=== PATIENT | female | born 1975 | race Caucasian/White ===

== ENCOUNTER 2019-10-20 13:33 | Outpatient (CLI) | payer OTHER | END 2019-10-20 13:34 | disposition home or self-care (01) | LOC: COV 13:33 | PROVIDERS: ATTEND Surgery | DX: Z01.812 Encounter for preprocedural laboratory examination (principal); K40.90 Unilateral inguinal hernia, without obstruction or gangrene, not specified as recurrent | CPT/HCPCS: 81599 ==

== ENCOUNTER 2019-10-24 10:09 | Day surgery (SDC) | payer OTHER ==
[~2019-10-24 10:09] MED LIST: BUPIVACAINE 0.5% PF 30 ML VIAL INFIL ONE; CEFAZOLIN SODIUM IN 0.9 % NACL 2 GM/100 ML BAG IV ONE; LACTATED RINGERS 1,000 ML IV ONE; LIDOCAINE 1%-EPI 1:100000 20 ML MDV SUBQ ONE
[2019-10-24] MEDS ORDERED: LACTATED RINGERS 1,000 ML IV ONE (10:25)
--- NOTE | 2019-10-24 10:48 | ANESTHESIA ---
Pre-Anesthesia VS, & Labs - Diagnosis left inguinal hernia - Procedure left inguinal hernia repair Vital Signs: Temp Pulse Resp BP Pulse Ox 36.3 C L 68 18 159/95 H 100 10/24/19 09:59 10/24/19 09:59 10/24/19 09:59 10/24/19 09:59 10/24/19 09:59 Height 5 ft 5 in Weight (kg) 114 kg - NPO >8 hours - Is Patient ?: No Home Medications and Allergies Home Medications: Ambulatory Orders Norgestrel-Ethinyl Estradiol [[id number] Tablet] 1 tab PO DAILY 10/24/19 Norgestrel-Ethinyl Estradiol [[id number] Tablet] 1 tab PO DAILY 10/24/19 Allergies/Adverse Reactions: Allergies Allergy/AdvReac Type Severity Reaction Status Date / Time No Known Drug Allergies Allergy Verified 10/24/19 10:25 Anes History & Medical History - Anesthetic History Anesthesia Complications: reports: Post-Operative Nausea/Vomiting Family history of Anesthesia Complications: Denies Family history of Malignant Hyperthermia: Denies - Medical History Cardiovascular: reports: None Pulmonary: reports: None Gastrointestinal: reports: GERD (but not this morning) Urinary: reports: None Neuro: reports: None Musculoskeletal: reports: None Endocrine/Autoimmune: reports: None Blood Disorders: reports: None Skin: reports: None Smoking Status: Never smoker Psychosocial: reports: Depression, Anxiety (reports having had "many reproductive surgeries") - Surgical History Gynecologic: Other Exam General: Alert, Oriented x3, Cooperative, No acute distress Dental: WNL Mouth Openin Fingerbreadth Neck Mobility: Normal Mallampati classification: II Thyromental Distance: 4-6 cm Respiratory: Lungs clear, Normal breath sounds, No respiratory distress, No accessory muscle use Cardiovascular: Regular rate, Normal S1, Normal S2, No murmurs Abdomen: Normal bowel sounds, Soft, No tenderness, No hepatospenomegaly, No masses Extremities: No clubbing, No cyanosis, No edema, Normal pulses, No tenderness/swelling Neurological: Normal gait, Normal speech, Strength at 5/5 X4 ext, Normal tone, Sensation intact, Cranial nerves 3-12 NL, Reflexes 2+ Mental/Cognitive Status: Alert/Oriented X3, Normal for patient Cognitive Status: Within normal limits Plan Anesthesia Type: General Consent for Procedure(s) Verified and Reviewed: Yes Code Status: Attempt Resuscitation ASA classification: 2-Mild systemic disease Is this case an emergency?: No
[2019-10-24] MEDS ORDERED: FAMOTIDINE 20 MG/2 ML VIAL ONE (11:19)
[2019-10-24] MEDS ORDERED: ceFAZolin 1 GM VIAL IR ONE (11:25)
[2019-10-24] MEDS ORDERED: ceFAZolin 1 GM VIAL ONE (11:28)
--- NOTE | 2019-10-24 11:47 | OPERATIVE REPORT ---
Operative Report - General Procedure Date: 10/24/19 Planned Procedure: Right inguinal hernia repair Pre-Op Diagnosis: Painful right inguinal hernia Procedure Performed: Right inguinal hernia repair Post Op Diagnosis: Indirect right inguinal hernia - Procedure Note Primary Surgeon: Deborah Anesthesia Provider: CHRISTINA Mo Anesthesia Technique: General LMA, Local Estimated Blood Loss (mL): 10 Findings: Indirect right inguinal hernia Complications: none apparent - Other Other Information/Narrative: After obtaining informed consent, the patient is brought to the operating room and placed in the supine position on the operating table. Following successful induction of general endotracheal anesthesia, appropriate padding of all bony prominences, and placement of appropriate monitors, the abdomen was prepped and draped in the standard surgical fashion. A timeout was held per scope protocol. All elements of the surgical safety checklist were followed before, during, and after the procedure. We began the procedure by infiltrating a mixture of local anesthetics medial to the anterior superior iliac spine on the right. This was done to create an ileal inguinal nerve block. We then selected a site for an incision in the right lower quadrant just superior and lateral to the right pubic tubercle. This area was anesthetized with additional local anesthetic and an incision was created here.The incision was carried down through the skin and subcutaneous tissue to reveal the fascia of the external oblique aponeurosis. Retractor was placed and the aponeurosis was opened in direction of its fibers. The ilioinguinal nerve was immediately identified. The round ligament was identified with the hernia sac. It was divided and the sac placed back into the abdominal cavity. The sac was in the indirect position. We elected to repair the hernia with a large Prolene hernia system mesh implant. This was dipped in Ancef containing solution and then deployed into the defect. The posterior leaf let was straightened and flattened in the preperitoneal space. The inferior aspect of the anterior leaflet was then sewn to Herbert's ligament medially. Laterally it was tucked under the external beak aponeurosis. The wound was checked for hemostasis and irrigated with warm saline solution. It was aspirated free of all fluid and particulate matter. The extra oblique aponeurosis was then closed with a running locking Vicryl suture Nigel's fascia was closed with Vicryl suture and Monocryl stitches were placed in the skin. All sponge, needle, and instrument counts were correct at the conclusion of the case. The patient was allowed awaken from anesthesia without difficulty and taken to the postanesthesia care unit in good condition.
[2019-10-24] MEDS ORDERED: ACETAMINOPHEN 325 MG TABLET PO PRN (11:48)
[2019-10-24] MEDS ORDERED: IBUPROFEN 600 MG TABLET PO PRN (11:48)
[2019-10-24] MEDS ORDERED: oxyCODONE 5 MG TABLET PO PRN (11:48)
[2019-10-24] MEDS ORDERED: ONDANSETRON 4 MG/2 ML VIAL IVP PRN (11:48)
[2019-10-24 13:13] VITALS: BP 150/83
== END 2019-10-24 10:10 | disposition home or self-care (01) ==
LOC: SDS 10:09
PROVIDERS: ATTEND Surgery
DX: K40.90 Unilateral inguinal hernia, without obstruction or gangrene, not specified as recurrent (principal); K21.9 Gastro-esophageal reflux disease without esophagitis; Z87.891 Personal history of nicotine dependence
CPT/HCPCS: 49505; C1781; J0690; J7120